=== PATIENT | female | born 1995 | race Caucasian/White ===

== ENCOUNTER 2024-07-11 08:19 | Emergency (ER) | payer SELFPAY ==
[~2024-07-11] VITALS: Ht 165.1 cm; Wt 112.4 kg
[2024-07-11 08:22] VITALS: BP 122/68; TEMP 98.5; O2SAT 98
[2024-07-11] MEDS ORDERED: VENTAER INH (21:35)
[2024-07-11] MEDS ORDERED: BENZ200C70 PO (21:35)
== END 2024-07-11 10:03 | disposition left against medical advice (07) ==
LOC: M ED 08:19
DX: Z53.21 Procedure and treatment not carried out due to patient leaving prior to being seen by health care provider (principal)

== ENCOUNTER 2024-07-11 16:42 | Emergency (ER) | payer SELFPAY ==
[~2024-07-11] VITALS: Ht 165.1 cm; Wt 114.8 kg
[2024-07-11] MEDS: ACETAMINOPHEN 500 MG TAB PO ONE (19:38)
[2024-07-11 20:30] LABS: RSV AMPLIFICATION NEGATIVE (NEGATIVE)
[2024-07-11 21:00] VITALS: BP 134/64; TEMP 100.3; O2SAT 96
[2024-07-11] MEDS ORDERED: VENTAER INH (21:35)
[2024-07-11] MEDS ORDERED: BENZ200C70 PO (21:35)
== END 2024-07-11 21:41 | disposition home or self-care (01) ==
LOC: M ED 16:42
DX: U07.1 COVID-19 (principal); F17.210 Nicotine dependence, cigarettes, uncomplicated; Z79.51 Long term (current) use of inhaled steroids

== ENCOUNTER 2024-07-28 19:31 | Emergency (ER) | payer MEDICAID, SELFPAY ==
[~2024-07-28] VITALS: Ht 165.1 cm; Wt 112.6 kg
[~2024-07-28 19:31] MED LIST: BENZ200C70 PO; VENTAER INH
[2024-07-28] MEDS ORDERED: CYCL5TAB (19:39)
[2024-07-28 21:57] LABS: BASO % 0.4 % (0.0-1.0); EOS # 0.2 10^3/uL (0.0-0.5); HEMATOCRIT 37.2 % (36.0-47.0); HEMOGLOBIN 12.8 g/dl (12.0-15.5); LYMPH # 2.5 10^3/uL (1.5-5.0); MEAN CORPUSCULAR HEMOGLOBIN 30.4 pg (27.0-33.0); MEAN CORPUSCULAR HGB CONC 34.4 g/dl (32.0-36.5); MEAN CORPUSCULAR VOLUME 88.4 fl (80.0-96.0); MONO % 9.1 % (2.0-8.0); NEUTROPHILS # 7.5 10^3/uL (1.5-8.5); NEUTROPHILS % 66.1 % (36.0-66.0); PLATELET COUNT, AUTOMATED 373 10^3/uL (150-450); RED BLOOD COUNT 4.21 10^6/uL (4.00-5.40); WHITE BLOOD COUNT 11.3 10^3/uL (4.0-10.0)
[2024-07-28] MEDS ORDERED: PROP20TA72 PO (21:57)
[2024-07-28 22:17] LABS: BLOOD UREA NITROGEN 12 MG/DL (9-23); CALCIUM LEVEL 9.4 MG/DL (8.5-10.1); CARBON DIOXIDE LEVEL 27 MMOL/L (20-31); CHLORIDE LEVEL 109 MMOL/L (98-107); CK-MB VALUE MASS < 1.0 NG/ML (<3.6); CPK CREATINE PHOSPHOKINASE 47 U/L (34-145); CREATININE FOR GFR 0.78 MG/DL (0.55-1.30); GLOMERULAR FILTRATION RATE > 60.0 (>60); GLUCOSE, FASTING 88 MG/DL (60-100); MB/CK RELATIVE INDEX 2.12 (< OR =4); POTASSIUM SERUM 3.9 MMOL/L (3.5-5.1); SODIUM LEVEL 139 MMOL/L (136-145)
[2024-07-28 22:18] VITALS: BP 131/80; TEMP 98.2; O2SAT 97
== END 2024-07-28 22:37 | disposition home or self-care (01) ==
LOC: M ED 19:31
DX: M94.0 Chondrocostal junction syndrome [Tietze] (principal); R07.89 Other chest pain; F17.210 Nicotine dependence, cigarettes, uncomplicated; Z79.899 Other long term (current) drug therapy

== ENCOUNTER → 2024-08-29 | Outpatient (REF) | payer MEDICAID ==
[~2024-08-29] MED LIST changes: +CYCL5TAB; +PROP20TA72 PO
[2024-08-29 18:48] LABS: ALBUMIN 3.8 G/DL (3.2-5.2); ALKALINE PHOSPHATASE 92 U/L (35-104); ALT/SGPT 24 U/L (7.0-40); AST/SGOT < 8 U/L (<34); BILIRUBIN,TOTAL 0.4 MG/DL (0.3-1.2); BLOOD UREA NITROGEN 12 MG/DL (9-23); CARBON DIOXIDE LEVEL 28 MMOL/L (20-31); CHLORIDE LEVEL 108 MMOL/L (98-107); CHOLESTEROL LEVEL 156 MG/DL (<200); CHOLESTEROL RISK RATIO 2.98 (<5); CREATININE FOR GFR 0.61 MG/DL (0.55-1.30); GLOMERULAR FILTRATION RATE > 60.0 (>60); GLUCOSE, FASTING 83 MG/DL (60-100); HDL CHOLESTEROL 52.3 MG/DL (>40); LDL CHOLESTEROL 89.7 MG/DL (<100); NON-HDL-C 103.7 MG/DL; POTASSIUM SERUM 4.2 MMOL/L (3.5-5.1); SODIUM LEVEL 141 MMOL/L (136-145); TRIGLYCERIDES LEVEL 70 MG/DL (<150)
[2024-08-29 18:49] LABS: FREE T4 1.15 NG/DL (0.89-1.76)
[2024-08-29 18:50] LABS: THYROID STIMULATING HORMONE 1.141 uIU/ML (0.55-4.78)
== END ==
LOC: M LAB REF 16:45
PROVIDERS: ATTEND Pediatrics
DX: E66.01 Morbid (severe) obesity due to excess calories (principal); R00.2 Palpitations; Z68.41 Body mass index [BMI] 40.0-44.9, adult

== ENCOUNTER → 2024-08-31 | Outpatient (CLI) | payer MEDICAID ==
[~2024-08-31] MED LIST changes: -CYCL5TAB; +CYCL5TAB4
== END ==
LOC: M EKG 13:02
PROVIDERS: ATTEND Pediatrics
DX: R00.2 Palpitations (principal)

== ENCOUNTER 2024-10-05 13:22 | Emergency (ER) | payer MEDICAID, SELFPAY ==
[~2024-10-05] VITALS: Ht 165.1 cm; Wt 114.0 kg
[2024-10-05 13:34] VITALS: BP 169/99; TEMP 98.7; O2SAT 96
[2024-10-05] MEDS: IBUPROFEN 800 MG TAB PO ONE (16:25)
== END 2024-10-05 16:40 | disposition home or self-care (01) ==
LOC: M ED 13:22
DX: S62.611A Displaced fracture of proximal phalanx of left index finger, initial encounter for closed fracture (principal); Y92.9 Unspecified place or not applicable; Y93.9 Activity, unspecified; Y99.9 Unspecified external cause status; W23.0XXA Caught, crushed, jammed, or pinched between moving objects, initial encounter; F17.210 Nicotine dependence, cigarettes, uncomplicated

== ENCOUNTER 2024-10-11 11:45 | Emergency (ER) | payer SELFPAY ==
[~2024-10-11] VITALS: Ht 165.1 cm; Wt 113.8 kg
[2024-10-11 17:55] VITALS: BP 131/82; TEMP 97.1; O2SAT 100
== END 2024-10-11 17:59 | disposition home or self-care (01) ==
LOC: M ED 11:45
DX: S60.022A Contusion of left index finger without damage to nail, initial encounter (principal); Y92.9 Unspecified place or not applicable; Y93.9 Activity, unspecified; Y99.9 Unspecified external cause status; W23.0XXA Caught, crushed, jammed, or pinched between moving objects, initial encounter

== ENCOUNTER 2024-12-10 18:22 | Emergency (ER) | payer MEDICAID, OTHER ==
[~2024-12-10] VITALS: Ht 165.1 cm; Wt 115.3 kg
[2024-12-10 18:57] LABS: BASO # 0.1 10^3/uL (0.0-0.2); BASO % 0.7 % (0.0-1.0); EOS # 0.2 10^3/uL (0.0-0.5); EOS % 1.7 % (0.0-3.0); HEMATOCRIT 38.5 % (36.0-47.0); HEMOGLOBIN 13.1 g/dl (12.0-15.5); LYMPH # 3.9 10^3/uL (1.5-5.0); MEAN CORPUSCULAR HEMOGLOBIN 29.7 pg (27.0-33.0); MEAN CORPUSCULAR VOLUME 87.3 fl (80.0-96.0); MONO # 0.9 10^3/uL (0.0-0.8); MONO % 9.5 % (2.0-8.0); NEUTROPHILS # 4.7 10^3/uL (1.5-8.5); PLATELET COUNT, AUTOMATED 348 10^3/uL (150-450); RED BLOOD COUNT 4.41 10^6/uL (4.00-5.40); WHITE BLOOD COUNT 9.8 10^3/uL (4.0-10.0)
[2024-12-10 19:20] LABS: LIPASE 35 U/L (12-53)
[2024-12-10 19:22] LABS: ALBUMIN 3.9 G/DL (3.2-5.2); ALKALINE PHOSPHATASE 93 U/L (35-104); ALT/SGPT 18 U/L (7.0-40); AST/SGOT 10 U/L (<34); BILIRUBIN,DIRECT < 0.1 MG/DL (<0.4); BILIRUBIN,TOTAL 0.2 MG/DL (0.3-1.2); BLOOD UREA NITROGEN 17 MG/DL (9-23); CARBON DIOXIDE LEVEL 25 MMOL/L (20-31); CHLORIDE LEVEL 106 MMOL/L (98-107); CK-MB VALUE MASS < 1.0 NG/ML (<3.6); CPK CREATINE PHOSPHOKINASE 48 U/L (34-145); CREATININE FOR GFR 0.67 MG/DL (0.55-1.30); GLOMERULAR FILTRATION RATE > 60.0 (>60); GLUCOSE, FASTING 86 MG/DL (60-100); MB/CK RELATIVE INDEX 2.08 (< OR =4); POTASSIUM SERUM 4.2 MMOL/L (3.5-5.1); SODIUM LEVEL 140 MMOL/L (136-145); TOTAL PROTEIN 7.8 G/DL (5.7-8.2)
[2024-12-10] MEDS ORDERED: PROZ20CA11 PO (21:30)
[2024-12-10] MEDS ORDERED: HYDR-643 PO (21:31)
[2024-12-10 21:38] VITALS: BP 127/74; TEMP 97.7; O2SAT 98
== END 2024-12-10 21:41 | disposition home or self-care (01) ==
LOC: M ED 18:22
DX: R07.9 Chest pain, unspecified (principal); R00.2 Palpitations; F41.9 Anxiety disorder, unspecified; I10 Essential (primary) hypertension; F32.A Depression, unspecified; F17.200 Nicotine dependence, unspecified, uncomplicated; Z79.899 Other long term (current) drug therapy